=== PATIENT | male | born 1940 | race Two or more races ===

== ENCOUNTER 2016-05-11 12:40 | Emergency (ER) | payer MEDICARE, OTHER ==
[~2016-05-11] VITALS: Ht 177.8 cm; Wt 79.4 kg
[~2016-05-11 12:40] MED LIST: ASPI81TA27 PO; Atorvastatin Calcium PO; CLOP75TA28 PO
[2016-05-11 13:51] LABS: Basophils # (auto) 0 uL; Basophils % (auto) 0.7 % (0.0-2.0); DEFINITIVE VIEW TRANSMISSION; Eosinophils # (auto) 0.3 uL; Eosinophils % (auto) 5.3 % (0.0-7.0); Hemoglobin 13.3 g/dL (13.5-17.5); Lymphocytes # (auto) 1.4 uL; Lymphocytes % (auto) 28.6 % (10.0-50.0); Mean Corpuscular Hemoglobin 25.2 pg (28.0-32.0); Mean Corpuscular Volume 81.3 fL (80.0-100.0); Mean Platelet Volume 7.7 fL (7.4-10.4); Monocytes # (auto) 0.5 uL; Monocytes % (auto) 9.4 % (0.0-12.0); Neutrophils # (auto) 2.7 uL; Platelet Count (auto) 269 10^3/uL (140-450); Red Cell Distribution Width 16.5 % (11.6-16.0); White Blood Cell 4.8 10^3/uL (4.4-10.8)
[2016-05-11 14:17] LABS: Albumin 3.8 g/dL (3.4-5.0); BUN/Creatinine Ratio 28.4; Bilirubin, Total 0.3 mg/dL (0.2-1.0); Calcium 8.7 mg/dL (8.5-10.1); Potassium 4.3 mmol/L (3.5-5.1)
[2016-05-11 17:00] VITALS: BP 138/73
== END 2016-05-11 18:20 | disposition home or self-care (01) ==
LOC: ER 12:57
DX: F41.9 Anxiety disorder, unspecified (principal); R07.9 Chest pain, unspecified
CPT/HCPCS: 36415; 71020; 80053; 84484; 85025; 93005

== ENCOUNTER 2016-05-26 15:17 | Emergency (ER) | payer MEDICARE, OTHER ==
[~2016-05-26] VITALS: Ht 165.1 cm; Wt 77.1 kg
[2016-05-26 15:42] VITALS: BP 107/78
[2016-05-26] MEDS: ACETAMINOPHEN 325 MG TAB PO ONE (15:47)
== END 2016-05-26 16:41 | disposition home or self-care (01) ==
LOC: EDUNIT# 15:17 → ER 15:23
DX: R07.89 Other chest pain (principal); F41.9 Anxiety disorder, unspecified
CPT/HCPCS: 93005

== ENCOUNTER 2017-02-23 10:58 | Emergency (ER) | payer MEDICARE, OTHER ==
[~2017-02-23] VITALS: Ht 170.2 cm; Wt 66.7 kg
[2017-02-23 11:12] VITALS: BP 138/58
== END 2017-02-23 12:23 | disposition home or self-care (01) ==
LOC: ER 10:58
DX: N49.2 Inflammatory disorders of scrotum (principal)

== ENCOUNTER 2019-10-05 12:42 | Emergency (ER) | payer MEDICARE, OTHER ==
[~2019-10-05] VITALS: Ht 167.6 cm; Wt 81.6 kg
[~2019-10-05 12:42] MED LIST changes: +ASPI-404 PO; -ASPI81TA27 PO
[2019-10-05 14:58] VITALS: BP 150/74
== END 2019-10-05 15:01 | disposition home or self-care (01) ==
LOC: ER 12:42
DX: S86.911A Strain of unspecified muscle(s) and tendon(s) at lower leg level, right leg, initial encounter (principal); X58.XXXA Exposure to other specified factors, initial encounter; Y93.89 Activity, other specified; Y92.89 Other specified places as the place of occurrence of the external cause; Y99.8 Other external cause status
CPT/HCPCS: 93971